=== PATIENT | female | born 1995 | race Caucasian/White ===

== ENCOUNTER 2018-04-11 19:37 | Emergency (ER) | payer OTHER ==
[~2018-04-11] VITALS: Ht 157.5 cm; Wt 54.4 kg
[2018-04-11 19:46] VITALS: BP 125/80
[2018-04-11] MEDS ORDERED: IMPLANON (19:54)
[2018-04-11] MEDS ORDERED: NAPROSYN500 MG PO (19:55)
[2018-04-11] MEDS ORDERED: BACTRIM DS TAB1 EACH PO (19:55)
== END 2018-04-11 20:08 | disposition home or self-care (01) ==
LOC: M.ERS 19:37
DX: L03.114 Cellulitis of left upper limb (principal); F15.10 Other stimulant abuse, uncomplicated; F17.210 Nicotine dependence, cigarettes, uncomplicated